=== PATIENT | female | born 1995 | race Hispanic/Latino ===

== ENCOUNTER 2019-07-01 20:44 | Emergency (ER) | payer MEDICAID, OTHER ==
[~2019-07-01 20:44] MED LIST: ALBU8.5H8 IH; BUDE10.2 IH; CEFI400C PO
== END 2019-07-01 21:29 | disposition home or self-care (01) ==
LOC: EDH 20:44
DX: S16.1XXA Strain of muscle, fascia and tendon at neck level, initial encounter (principal); S29.012A Strain of muscle and tendon of back wall of thorax, initial encounter; J45.909 Unspecified asthma, uncomplicated; Z98.890 Other specified postprocedural states; V59.9XXA Occupant (driver) (passenger) of pick-up truck or van injured in unspecified traffic accident, initial encounter; Y93.89 Activity, other specified; Y92.89 Other specified places as the place of occurrence of the external cause; Y99.8 Other external cause status
CPT/HCPCS: 99281

== ENCOUNTER 2023-04-23 18:34 | Emergency (ER) | payer MEDICAID ==
[~2023-04-23] VITALS: Ht 154.9 cm; Wt 88.0 kg
[2023-04-23 19:26] VITALS: BP 131/79; PULSE 101; RESP 20
== END 2023-04-23 20:21 | disposition left against medical advice (07) ==
LOC: EDH 18:34
DX: S00.12XA Contusion of left eyelid and periocular area, initial encounter (principal); S00.11XA Contusion of right eyelid and periocular area, initial encounter; Z53.21 Procedure and treatment not carried out due to patient leaving prior to being seen by health care provider; Y04.2XXA Assault by strike against or bumped into by another person, initial encounter; Y93.89 Activity, other specified; Y92.89 Other specified places as the place of occurrence of the external cause; Y99.8 Other external cause status
CPT/HCPCS: 99281